=== PATIENT | female | born 1960 | race African-American/Black ===

== ENCOUNTER 2024-11-25 07:43 | Emergency (ER) | payer BC ==
[2024-11-25] MEDS ORDERED: Bisacodyl 10 MG SUPP ONE (08:17)
[2024-11-25] MEDS ORDERED: Fleet Saline Enema 133 ML BOT ONE (09:10)
== END 2024-11-25 13:10 | disposition home or self-care (01) ==
LOC: NAV ERS 07:43
DX: K59.00 Constipation, unspecified (principal); I10 Essential (primary) hypertension; Z79.899 Other long term (current) drug therapy
CPT/HCPCS: 82274; 96374; J2270; J7030; Q0162

== ENCOUNTER 2025-01-28 08:19 | Emergency (ER) | payer BC ==
[2025-01-28 09:55] LABS: Hematocrit 32.8 % (36.0-47.0); Hemoglobin 11.6 g/dL (12.0-16.0); Mean Corpuscular Hemoglobin 30.4 pg (27.0-31.0); Mean Corpuscular Volume 86.1 fl (78.0-98.0); Platelet Count 219 10x3/uL (130-400); Red Blood Cell (RBC) Count 3.81 mill/uL (4.20-5.40); White Blood Cell (WBC) Count 7.5 10x3/uL (4.8-10.8)
[2025-01-28 10:08] LABS: ALT (SGPT) 9 U/L (Less than 34); AST (SGOT) 22 U/L (11-34); Albumin 3.6 g/dL (3.1-4.5); Alkaline Phosphatase 74 U/L (40-110); Anion Gap 15 mmol/L (10-20); BUN (Urea Nitrogen) 18 mg/dL (9.8-20.1); Bilirubin, Total 0.3 mg/dL (0.3-1.2); Calc. Creatinine Clearance 0 mL/min (70-130); Calcium 8.8 mg/dL (7.8-10.44); Carbon Dioxide 24 mmol/L (23-31); Chloride 106 mmol/L (98-107); Globulin 3.4 g/dL (2.4-3.5); Glucose 87 mg/dL (80-115); Potassium 3.8 mmol/L (3.5-5.1); Sodium 141 mmol/L (136-145)
[2025-01-28 10:10] LABS: Troponin I Less than 0.010 ng/mL (< 0.028)
[2025-01-28 12:47] LABS: Glucose, Urine (Dipstick) Negative (Negative); Leukocyte Large (Negative); Protein, Urine (Dipstick) Negative (Neg-Trace); Specific Gravity, Urine 1.015 (1.005-1.030)
[2025-01-28 13:31] LABS: Bacteria/HPF 3+ HPF (None Seen); CAUTI Indications for Culture Alt mental st,lethar; RBC/HPF 0-3 HPF (0-3); WBC/HPF Greater than 50 HPF (0-3)
[2025-01-28 13:32] LABS: Trichomonas/HPF 2+ HPF (None Seen)
[2025-01-28 13:34] LABS: Urine Culture Reflex Yes Yes
== END 2025-01-28 14:06 | disposition home or self-care (01) ==
LOC: NAV ERS 08:19
DX: I95.1 Orthostatic hypotension (principal); A59.9 Trichomoniasis, unspecified; I10 Essential (primary) hypertension; Z85.3 Personal history of malignant neoplasm of breast; Z79.899 Other long term (current) drug therapy
CPT/HCPCS: 36415; 71045; 80053; 81001; 84484; 85025; 87077; 87086; 93005; 96360